=== PATIENT | female | born 1995 | race African-American/Black ===

== ENCOUNTER 2016-06-12 01:32 | Emergency (ER) | payer MEDICAID ==
[2016-06-12 01:47] VITALS: BP 134/75
[2016-06-12] MEDS ORDERED: AMOXICILLIN TRIHYDRATE 500 MG CAPSULE PO ONE (02:57)
--- NOTE | 2016-06-12 03:02 | ER Document Report ---
HPI - HPI Patient complains to provider of: sore throat Pain Level: 3 Context: Patient is a 21-year-old female that comes emergency department for chief complaint of a sore throat and congestion with intermittent cough for 1 week. She denies fever. She states she feels like she "cannot breathe". Patient does not smoke, denies any daily medications, denies any medical history other than asthma. Patient denies any sick contacts. - REPRODUCTIVE LMP: 2--17 Reproductive: DENIES: : - DERM Skin Color: Normal Past Medical History - General Information source: Patient - Social History Smoking Status: Never Smoker Chew tobacco use (# tins/day): No Frequency of alcohol use: None Drug Abuse: None Lives with: Family Family History: Reviewed & Not Pertinent Patient has suicidal ideation: No Patient has homicidal ideation: No Pulmonary Medical History: Reports: Hx Asthma Renal/ Medical History: Denies: Hx Peritoneal Dialysis Past Surgical History: Reports: Hx Section - Immunizations Immunizations up to date: Yes Hx Diphtheria, Pertussis, Tetanus Vaccination: Yes Vertical Provider Document - CONSTITUTIONAL General Appearance: WD/WN, No Apparent Distress - INFECTION CONTROL TRAVEL OUTSIDE OF THE [place] IN LAST 30 DAYS: No - HEENT HEENT: Atraumatic, Normocephalic. negative: Normal ENT Exam - Patient with right maxillary sinus tenderness which is notable him a mildly tender sinuses otherwise, congestion with slightly swollen turbinates, mild postnasal drip and or erythema noted in the pharynx, otherwise unremarkable exam, Pharyngeal Exudate, Pharyngeal Tenderness - NECK Neck: Normal Inspection. negative: Lymphadenopathy-Left, Lymphadenopathy-Right - RESPIRATORY Respiratory: Breath Sounds Normal, No Respiratory Distress O2 Sat by Pulse Oximetry: 73 - I do not agree with this, asked for a recheck - CARDIOVASCULAR Cardiovascular: Regular Rate, Regular Rhythm - GI/ABDOMEN Gastrointestinal: Abdomen Soft, Abdomen Non-Tender Course - Vital Signs Vital signs: Temp Pulse Resp BP Pulse Ox 97.6 F 73 18 134/75 H 73 L 06/12/16 01:46 06/12/16 01:46 06/12/16 01:46 06/12/16 01:46 06/12/16 01:46 Discharge - Discharge Clinical Impression: Pharyngitis Qualifiers: Pharyngitis/tonsillitis etiology: unspecified etiology Qualified Code(s): J02.9 - Acute pharyngitis, unspecified Sinusitis Qualifiers: Sinusitis location: maxillary Chronicity: acute Recurrence: non-recurrent Qualified Code(s): J01.00 - Acute maxillary sinusitis, unspecified Condition: Stable Disposition: HOME, SELF-CARE Additional Instructions: Exam and symptoms are consistent with a sinus infection with postnasal drainage and resulting sore throat and cough. Take the antibiotic as directed, use the Sudafed and Flonase as directed, consider [id number] antihistamines additionally, drink plenty of fluids and rest. Follow-up with primary care provider. Return to the emergency department for concerning symptoms. Prescriptions: Amoxicillin Trihydrate [Amoxil 875 mg Tablet] 1 tab PO BID #20 tablet Fluticasone Propionate [Flonase Nasal [place] 50 Mcg/[place] 16 gm] 2 sprays NASL Q12 #1 inhaler Pseudoephedrine HCl [Sudafed 12-Hour] 120 mg PO Q12 #20 tablet.sa
== END 2016-06-12 03:30 | disposition home or self-care (01) ==
LOC: ER 01:32
DX: J02.9 Acute pharyngitis, unspecified (principal); J01.00 Acute maxillary sinusitis, unspecified; J45.909 Unspecified asthma, uncomplicated
CPT/HCPCS: 99282

== ENCOUNTER 2016-06-25 13:02 | Emergency (ER) | payer MEDICAID ==
--- NOTE | 2016-06-25 13:10 | ER Document Report ---
ED Medical Screen (RME) - General Stated Complaint: VOMITTING Mode of Arrival: Ambulatory Information source: Patient Notes: Patient presents to the emergency department with sore throat and vomiting for 3 days. Sore throat since last week. Patient was evaluated in emergency department last week for sinus infection. Pt was placed on amoxicillin, has not been taking decongestant. Declines nausea medicine. I have greeted and performed a rapid initial assessment of this patient. A comprehensive ED assessment and evaluation of the patient, analysis of test results and completion of the medical decision making process will be conducted by additional ED providers. TRAVEL OUTSIDE OF THE [place] IN LAST 30 DAYS: No - Related Data Allergies/Adverse Reactions: latex [Latex] Allergy (Verified 06/25/16 13:10) turkey Allergy (Verified 06/25/16 13:10) Past Medical History Pulmonary Medical History: Reports: Hx Asthma Renal/ Medical History: Denies: Hx Peritoneal Dialysis Past Surgical History: Reports: Hx Section - Immunizations Immunizations up to date: Yes Hx Diphtheria, Pertussis, Tetanus Vaccination: Yes
--- NOTE | 2016-06-25 14:54 | ER Document Report ---
ED General - General Chief Complaint: Nausea/Vomiting Stated Complaint: VOMITTING Time seen by provider: 14:48 Mode of Arrival: Ambulatory Information source: Patient Notes: This is a 21-year-old female presents to the emergency room with sore throat, vomiting and an acid taste in the vomitus. Patient just finished amoxicillin because of a sinus infection. She has had persistent congestion. She has had intermittent fevers a few days ago but none presently. She denies any abdominal pain. TRAVEL OUTSIDE OF THE [place] IN LAST 30 DAYS: No - HPI Onset: Last week Onset/Duration: Gradual Quality of pain: No pain Severity: None Pain Level: Denies Associated symptoms: Nausea, Vomiting. denies: Chills, Fever Exacerbated by: Denies Relieved by: Denies Similar symptoms previously: Yes Recently seen / treated by doctor: Yes - Related Data Allergies/Adverse Reactions: latex [Latex] Allergy (Verified 06/25/16 13:10) turkey Allergy (Verified 06/25/16 13:10) Past Medical History - General Information source: Patient - Social History Smoking Status: Never Smoker Cigarette use (# per day): No Chew tobacco use (# tins/day): No Frequency of alcohol use: None Drug Abuse: None Lives with: Family Family History: Reviewed & Not Pertinent Patient has suicidal ideation: No Patient has homicidal ideation: No - Medical History Medical History: Negative Pulmonary Medical History: Reports: Hx Asthma Renal/ Medical History: Denies: Hx Peritoneal Dialysis Past Surgical History: Reports: Hx Section - Immunizations Immunizations up to date: Yes Hx Diphtheria, Pertussis, Tetanus Vaccination: Yes Review of Systems - Review of Systems Constitutional: See HPI EENT: See HPI Cardiovascular: No symptoms reported Respiratory: No symptoms reported Gastrointestinal: See HPI Genitourinary: No symptoms reported Female Genitourinary: No symptoms reported Musculoskeletal: No symptoms reported Skin: No symptoms reported Hematologic/Lymphatic: No symptoms reported Neurological/Psychological: No symptoms reported Physical Exam - Vital signs Vitals: Temp Pulse Resp BP Pulse Ox 98.6 F 97 14 145/74 H 98 06/25/16 13:10 06/25/16 13:10 06/25/16 13:10 06/25/16 13:10 06/25/16 13:10 Notes: Physical exam: GENERAL: 21-year-old female, alert and oriented 3, no acute distress. The patient looks good. HEAD: Atraumatic, normocephalic. EYES: Pupils equal round and reactive to light, extraocular movements intact, sclera anicteric, conjunctiva are normal. ENT: TMs normal, nares patent, oropharynx clear without exudates. Moist mucous membranes. NECK: Normal range of motion, supple without lymphadenopathy or JVD. LUNGS: Breath sounds clear to auscultation bilaterally and equal. No wheezes rales or rhonchi. HEART: Regular rate and rhythm without murmurs, rubs or gallops. ABDOMEN: Soft, normoactive bowel sounds. No tenderness to palpation. No guarding, no rebound. No masses appreciated. EXTREMITIES: Normal range of motion, no pitting or edema. No clubbing or cyanosis. NEUROLOGICAL: Cranial nerves II through XII grossly intact. Normal speech, normal gait. PSYCH: Normal mood, normal affect. SKIN: Warm, Dry, normal turgor, no rashes or lesions noted. Course - Re-evaluation Re-evalutation: 06/25/16 14:54 Note: The patient does have mild sinus congestion. Given the history, it sounds like she had a viral URI and that she was treated with amoxicillin for sinusitis. It may have upset her stomach and she's had some episodes of vomiting with an acid taste in her mouth. Her abdomen is soft and nontender. She's not had any vomiting in the ER and does not appear dehydrated. She also states that now she has a sore throat. Her throat looks good, there is no swelling, no erythema or exudates. The strep test is negative. I did discuss with her using simply saline to reduce the congestion and her nose and sinuses and she says she has tried it and it "did nothing". I will prescribe some [place] Magic mouthwash for the sore throat. And I will prescribe some Zofran for the nausea. I think in general, her GI symptoms are related to vomiting from the recent antibiotics. Her sinus congestion continues because she has a virus. Otherwise, she looks quite good. - Vital Signs Vital signs: Temp Pulse Resp BP Pulse Ox 97.9 F 109 H 16 138/87 H 100 06/25/16 15:20 06/25/16 15:20 06/25/16 15:20 06/25/16 15:20 06/25/16 15:20 Discharge - Discharge Clinical Impression: vomiting, sore throat Condition: Stable Disposition: HOME, SELF-CARE Instructions: Vomiting ([facility]) Additional Instructions: Recommendations: Take Zofran for nausea. Try the [place] Magic mouthwash for the sore throat. Drink plenty of fluids. Follow-up with a primary care doctor. Below is a list of 3 primary care doctors affiliated with the hospital: Dr. Joyce Naylor Kim [address], [place] [address] [phone] Dr Goldsmith Address: [address] [place] [address] [place] [address] Dr Douglas Address: [address] [place] [address] , [place] [address] Return to the emergency room for any concerns or to getting worse. Prescriptions: Nystatin/Dexameth/Diphen [Magic Mouthwash ([facility] Formula) Susp] 5 ml PO QID #120 ml Ondansetron HCl [Zofran 4 mg Tablet] 1 - 2 tab PO Q4H PRN #10 tablet PRN Reason:
[2016-06-25 15:21] VITALS: BP 138/87
== END 2016-06-25 15:16 | disposition home or self-care (01) ==
LOC: ER 13:02
DX: J02.9 Acute pharyngitis, unspecified (principal); R11.2 Nausea with vomiting, unspecified; Z91.040 Latex allergy status
CPT/HCPCS: 87070; 87880; 99284

== ENCOUNTER 2016-09-05 22:15 | Emergency (ER) | payer MEDICAID ==
[2016-09-05 23:59] LABS: ABSOLUTE BASOPHILS # (AUTO) 0.1 10^3/uL (0.0-0.2); ABSOLUTE EOSINOPHILS # (AUTO) 0.1 10^3/uL (0.0-0.6); ABSOLUTE LYMPHOCYTES (AUTO) 2.7 10^3/uL (0.5-4.7); ABSOLUTE MONOCYTES (AUTO) 0.6 10^3/uL (0.1-1.4); ABSOLUTE NEUT (AUTO) 5.2 10^3/uL (1.7-8.2); BASOPHILS % (AUTO) 0.6 % (0-2); EOSINOPHILS % (AUTO) 1.6 % (0-6); HEMATOCRIT 33.4 % (36.0-47.0); HEMOGLOBIN 11.1 g/dL (12.0-15.5); HGB HCT DIFFERENCE -0.1; MEAN CORPUSCULAR HEMOGLOBIN 27.4 pg (27.0-33.4); MEAN CORPUSCULAR HGB CONC 33.1 g/dL (32.0-36.0); MEAN CORPUSCULAR VOLUME 83 fl (80-97); RED BLOOD COUNT 4.04 10^6/uL (3.72-5.28); RED CELL DISTRIBUTION WIDTH 16.5 % (11.5-14.0); SEGMENTED NEUTROPHILS % (AUTO) 59.8 % (42-78); WHITE BLOOD COUNT 8.7 10^3/uL (4.0-10.5)
[2016-09-06 00:04] LABS: APPEARANCE,URINE CLEAR; BILIRUBIN,URINE NEGATIVE (NEGATIVE); GLUCOSE, URINE NEGATIVE (NEGATIVE); KETONES,URINE NEGATIVE (NEGATIVE); LEUKOCYTE ESTERASE,URINE NEGATIVE (NEGATIVE); NITRITE,URINE NEGATIVE (NEGATIVE); PROTEIN,URINE NEGATIVE (NEGATIVE); URINE SPECIFIC GRAVITY 1.018; UROBILINOGEN,URINE NEGATIVE mg/dL (<2.0)
[2016-09-06 00:15] LABS: ALANINE AMINOTRANSFERASE 32 U/L (9-52); ALBUMIN 3.7 g/dL (3.5-5.0); ALKALINE PHOSPHATASE 63 U/L (38-126); ANION GAP 11 (5-19); ASPARTATE AMINO TRANSFERASE 22 U/L (14-36); BILIRUBIN,DIRECT 0.2 mg/dL (0.0-0.4); BILIRUBIN,TOTAL 0.2 mg/dL (0.2-1.3); BLOOD UREA NITROGEN 14 mg/dL (7-20); CALCIUM 9.8 mg/dL (8.4-10.2); CARBON DIOXIDE 24 mmol/L (22-30); CHLORIDE 104 mmol/L (98-107); CREATININE RESULT 0.91 mg/dL (0.52-1.25); GLUCOSE 85 mg/dL (75-110); POTASSIUM 4.6 mmol/L (3.6-5.0); SODIUM 138.8 mmol/L (137-145); TOTAL PROTEIN 6.6 g/dL (6.3-8.2)
--- NOTE | 2016-09-06 02:23 | ER Document Report ---
ED General - General Chief Complaint: Skin Problem Stated Complaint: RIB PRESSURE,LOWER BACK PAIN Time Seen by Provider: 09/06/16 02:11 Notes: Patient is a 21-year-old female who comes emergency department for 2 complaints. First complaint is a rash that started on her abdomen, it is a circular rash in appearance with a blanched center, it is not very itchy, but it is starting to develop it is slightly painful but then afterwards it is asymptomatic. Symptoms started 3 weeks ago. Has one on her back, one on her leg on the left side, and the other patient also states that she is having pain is just under her ribs on both sides and also pains in hers on her abdomen and also pains in her mid to lower back on symptoms do respond to Aleve, symptoms present about 3 days,, more noticeable at night. Patient also had a recent positive test. Patient denies any daily medications. TRAVEL OUTSIDE OF THE [place] IN LAST 30 DAYS: No - Related Data Allergies/Adverse Reactions: latex [Latex] Allergy (Verified 09/05/16 23:02) turkey Allergy (Verified 09/05/16 23:02) Past Medical History - General Information source: Patient - Social History Smoking Status: Never Smoker Chew tobacco use (# tins/day): No Frequency of alcohol use: None Drug Abuse: None Lives with: Family Family History: Reviewed & Not Pertinent Patient has suicidal ideation: No Patient has homicidal ideation: No Pulmonary Medical History: Reports: Hx Asthma Renal/ Medical History: Denies: Hx Peritoneal Dialysis Past Surgical History: Reports: Hx Section - Immunizations Immunizations up to date: Yes Hx Diphtheria, Pertussis, Tetanus Vaccination: Yes Review of Systems - Review of Systems Constitutional: No symptoms reported EENT: No symptoms reported Cardiovascular: No symptoms reported Respiratory: No symptoms reported Gastrointestinal: See HPI Genitourinary: See HPI Female Genitourinary: No symptoms reported Musculoskeletal: See HPI Skin: See HPI Hematologic/Lymphatic: No symptoms reported Neurological/Psychological: No symptoms reported Physical Exam - Vital signs Vitals: Temp Pulse Resp BP Pulse Ox 98.6 F 90 16 145/80 H 99 09/05/16 23:02 09/05/16 23:02 09/05/16 23:02 09/05/16 23:02 09/05/16 23:02 Interpretation: Normal - General General appearance: Appears well, Alert In distress: None - Smiling, alert, well-appearing - HEENT Head: Normocephalic, Atraumatic Eyes: Normal Conjunctiva: Normal Extraocular movements intact: Yes Eyelashes: Normal Pupils: PERRL Mouth/Lips: Normal Mucous membranes: Normal Pharynx: Normal Neck: Normal - Respiratory Respiratory status: No respiratory distress Chest status: Nontender Breath sounds: Normal Chest palpation: Normal - Cardiovascular Rhythm: Regular. No: Tachycardia Heart sounds: Normal auscultation, S1 appreciated, S2 appreciated Murmur: No - Abdominal Inspection: Normal Distension: No distension Bowel sounds: Normal Tenderness: Nontender. No: Tender - Completely nontender abdomen Organomegaly: No organomegaly - Back Back: No: Tender - There is mild mid to lower thoracic and upper lumbar paraspinal tenderness, no evidence of trauma, no midline tenderness, no saddle anesthesia, moves all extremities and full range of motion with normal strength , normal distal neurovascular exam - Extremities General upper extremity: Normal inspection, Nontender, Normal color, Normal ROM , Normal temperature General lower extremity: Normal inspection, Nontender, Normal color, Normal ROM , Normal temperature, Normal weight bearing. No: Desire's sign - Neurological Neuro grossly intact: Yes Cognition: Normal Orientation: AAOx4 [place] Coma Scale Eye Opening: Spontaneous [place] Coma Scale Verbal: Oriented [place] Coma Scale Motor: Obeys Commands [place] Coma Scale Total: 15 Speech: Normal Motor strength normal: LUE, RUE, LLE, RLE Sensory: Normal - Psychological Associated symptoms: Normal affect, Normal mood - Skin Skin Temperature: Warm Skin Moisture: Dry Skin Color: Normal Location of irregularity: Other - 3 areas of rash noted to be circular with a raised border and clear central area, also noted on the right arm and left thigh , otherwise unremarkable exam Course - Re-evaluation Re-evalutation: Rash is actually fungal in appearance, no cellulitis or other abnormalities noted. We will treat accordingly. Abdomen is completely nontender, patient has generalized tenderness over the muscles of the back with no midline tenderness or neurological deficits. Laboratory workup reviewed and unremarkable, shows positive test which patient already was aware of. After discussion patient is requesting something to take other than Advil for her back, I did agree to give her some Flexeril to take only if needed, I did agree to give her Zantac because of symptoms of upper abdominal pain when lying down, patient states she will follow-up with primary care and return for any concerning or worsening symptoms. Discussed patient and rash with Dr. Hernandes. - Vital Signs Vital signs: Temp Pulse Resp BP Pulse Ox 98.6 F 87 16 144/86 H 98 09/05/16 23:02 09/06/16 03:30 09/06/16 03:30 09/06/16 03:30 09/06/16 03:30 - Laboratory Result Diagrams: 09/05/16 23:35 09/05/16 23:35 Laboratory results interpreted by me: 09/05/16 09/05/16 23:35 23:40 Hgb 11.1 L Hct 33.4 L RDW 16.5 H Urine HCG, Qual POSITIVE H Discharge - Discharge Clinical Impression: Rash Abdominal pain Qualifiers: Abdominal location: generalized Qualified Code(s): R10.84 - Generalized abdominal pain Back pain Qualifiers: Back pain location: back pain in unspecified location Chronicity: acute Back pain laterality: bilateral Qualified Code(s): M54.9 - Dorsalgia, unspecified Condition: Stable Disposition: HOME, SELF-CARE Additional Instructions: The rash has a fungal appearance, apply the cream as prescribed, follow-up with primary care for additional management. In regards to the abdominal pain, stop the Advil, take the Zantac if needed. In regards to the back pain, workup shows no abnormalities, this appears to be musculoskeletal, take the Flexeril as directed only if needed. Follow-up with [facility], return to emergency department for any concerning worsening symptoms including fever, vomiting, redness or spreading of the rash, or any other concerning symptoms. Prescriptions: Clotrimazole 30 gm TP ASDIR PRN #2 cream.gm. PRN Reason: Cyclobenzaprine HCl [Flexeril 5 mg Tablet] 1 - 2 tab PO TID PRN #15 tablet PRN Reason: Ranitidine HCl [Zantac 150 mg Tablet] 150 mg PO BID PRN #30 tablet PRN Reason: Forms: Elevated Blood Pressure
[2016-09-06 03:31] VITALS: BP 144/86
== END 2016-09-06 03:30 | disposition home or self-care (01) ==
LOC: ER 22:15
DX: R21 Rash and other nonspecific skin eruption (principal); R10.84 Generalized abdominal pain; R07.81 Pleurodynia; R10.9 Unspecified abdominal pain; M54.5 Low back pain; Z32.01 Encounter for pregnancy test, result positive; Z91.040 Latex allergy status
CPT/HCPCS: 36415; 80053; 81001; 81025; 83690; 85025; 99284

== ENCOUNTER 2016-10-24 06:19 | Emergency (ER) | payer MEDICAID ==
--- NOTE | 2016-10-24 07:01 | ER Document Report ---
ED GI/ - General Chief Complaint: Vaginal Pain Stated Complaint: VAGINAL AREA PAINFUL TO TOUCH Time Seen by Provider: 10/24/16 07:01 Mode of Arrival: Ambulatory Information source: Patient Notes: 21-year-old female complaining of introitus and vaginal itching and burning sensation. It is similar to when she had bacterial vaginosis in the past. She had an in August and no pelvic pain or discharge since then. Abstinent since August. No fever or chills. No dysuria frequency or urgency. TRAVEL OUTSIDE OF THE [place] IN LAST 30 DAYS: No - Related Data Allergies/Adverse Reactions: latex [Latex] Allergy (Verified 09/05/16 23:02) turkey Allergy (Verified 09/05/16 23:02) Past Medical History - General Information source: Patient - Social History Smoking Status: Never Smoker Frequency of alcohol use: None Drug Abuse: None Lives with: Family Family History: Reviewed & Not Pertinent Patient has suicidal ideation: No Patient has homicidal ideation: No Pulmonary Medical History: Reports: Hx Asthma Renal/ Medical History: Denies: Hx Peritoneal Dialysis Past Surgical History: Reports: Hx Section - Immunizations Immunizations up to date: Yes Hx Diphtheria, Pertussis, Tetanus Vaccination: Yes Review of Systems - Review of Systems Constitutional: No symptoms reported EENT: No symptoms reported Cardiovascular: No symptoms reported Respiratory: No symptoms reported Gastrointestinal: No symptoms reported Genitourinary: No symptoms reported Female Genitourinary: See HPI Musculoskeletal: No symptoms reported Skin: No symptoms reported Hematologic/Lymphatic: No symptoms reported Neurological/Psychological: No symptoms reported Physical Exam - Vital signs Vitals: Temp Pulse Resp BP Pulse Ox 98.2 F 74 16 144/90 H 99 10/24/16 06:26 10/24/16 06:26 10/24/16 06:26 10/24/16 06:26 10/24/16 06:26 Interpretation: Normal - General General appearance: Appears well, Alert In distress: None - HEENT Head: Normocephalic, Atraumatic Eyes: Normal Conjunctiva: Normal Pupils: PERRL Pharynx: Normal Neck: Supple. No: Lymphadenopathy - Respiratory Respiratory status: No respiratory distress Chest status: Nontender Breath sounds: Normal Chest palpation: Normal - Cardiovascular Rhythm: Regular Heart sounds: Normal auscultation Murmur: No - Abdominal Inspection: Normal Distension: No distension Bowel sounds: Normal Tenderness: Nontender. No: Tender Organomegaly: No organomegaly - Genitourinary External exam: Other - inflamed introitus, no lesions Speculum exam: Normal, Cervix closed. No: Vaginal discharge Vaginal bleeding: None Bimanuel exam: No: Cervical motion tender - Back Back: Normal, Nontender. No: CVA tenderness - Extremities General upper extremity: Normal inspection, Nontender, Normal color, Normal ROM , Normal temperature General lower extremity: Normal inspection, Nontender, Normal color, Normal ROM , Normal temperature, Normal weight bearing. No: Desire's sign - Neurological Neuro grossly intact: Yes Cognition: Normal Orientation: AAOx4 [place] Coma Scale Eye Opening: Spontaneous [place] Coma Scale Verbal: Oriented [place] Coma Scale Motor: Obeys Commands [place] Coma Scale Total: 15 Speech: Normal Motor strength normal: LUE, RUE, LLE, RLE Sensory: Normal - Psychological Associated symptoms: Normal affect, Normal mood - Skin Skin Temperature: Warm Skin Moisture: Dry Skin Color: Normal Course - Re-evaluation Re-evalutation: 10/24/16 19:52 late entry: std cx negative, the wet prep showed bacteria, since hx of BV and sx similar tx with flagyl. - Vital Signs Vital signs: Temp Pulse Resp BP Pulse Ox 98.5 F 68 16 115/80 99 10/24/16 10:11 10/24/16 10:11 10/24/16 10:11 10/24/16 10:11 10/24/16 10:11 - Laboratory Laboratory results interpreted by me: 10/24/16 07:00 Urine Blood MODERATE H Discharge - Discharge Clinical Impression: Bacterial vaginosis Vaginitis Qualifiers: Chronicity: acute Qualified Code(s): N76.0 - Acute vaginitis Condition: Good Disposition: HOME, SELF-CARE Instructions: Vaginitis ([facility]), Vaginosis, Bacterial ([facility]), Metronidazole ([facility]) Additional Instructions: no alcohol with the flagyl no douching call me in 3 hours for the STD culture result [phone] see obgyn if symtpoms persist Please complete the patient satisfaction survey if you get one, and return it.. If you do not receive a survey, then you can go to the [facility] website, [email or web address] and place your comments about your very good care. Thank you very much. It was a pleasure being your medical provider today. Prescriptions: Metronidazole 500 mg PO BID #14 tablet
[2016-10-24 07:38] LABS: APPEARANCE,URINE CLEAR; BILIRUBIN,URINE NEGATIVE (NEGATIVE); GLUCOSE, URINE NEGATIVE (NEGATIVE); KETONES,URINE NEGATIVE (NEGATIVE); LEUKOCYTE ESTERASE,URINE NEGATIVE (NEGATIVE); NITRITE,URINE NEGATIVE (NEGATIVE); PROTEIN,URINE NEGATIVE (NEGATIVE); URINE SPECIFIC GRAVITY 1.024; UROBILINOGEN,URINE NEGATIVE mg/dL (<2.0)
[2016-10-24 10:13] VITALS: BP 115/80
[2016-10-24 10:26] LABS: CHLAM PCR NOT DETECTED (NOT DETECT)
== END 2016-10-24 10:11 | disposition home or self-care (01) ==
LOC: ER 06:19
DX: N76.0 Acute vaginitis (principal); R10.2 Pelvic and perineal pain
CPT/HCPCS: 81001; 81025; 87210; 87491; 87591; 99283

== ENCOUNTER 2017-03-01 11:45 | Emergency (ER) | payer MEDICAID ==
--- NOTE | 2017-03-01 12:39 | ER Document Report ---
ED Skin Rash/Insect Bite/Abscs - General Chief Complaint: Rash Stated Complaint: POSSIBLE RASH Time Seen by Provider: 03/01/17 12:30 TRAVEL OUTSIDE OF THE [place] IN LAST 30 DAYS: No - HPI Patient complains to provider of: Skin rash/lesion Quality of pain: Other - itching Skin Character: Rash Skin Temperature: Warm Quality of rash: Itchy Exacerbated by: Denies Relieved by: Denies Similar symptoms previously: Yes Recently seen / treated by doctor: No - Related Data Allergies/Adverse Reactions: latex [Latex] Allergy (Verified 03/01/17 11:49) turkey Allergy (Verified 03/01/17 11:49) Past Medical History - General Information source: Patient - Social History Smoking Status: Never Smoker Chew tobacco use (# tins/day): No Frequency of alcohol use: None Drug Abuse: None Lives with: Family Family History: Reviewed & Not Pertinent Patient has suicidal ideation: No Patient has homicidal ideation: No Pulmonary Medical History: Reports: Hx Asthma Renal/ Medical History: Denies: Hx Peritoneal Dialysis Past Surgical History: Reports: Hx Section, Hx Gynecologic Surgery - - Immunizations Immunizations up to date: Yes Hx Diphtheria, Pertussis, Tetanus Vaccination: Yes Review of Systems - Review of Systems Constitutional: No symptoms reported EENT: No symptoms reported Cardiovascular: No symptoms reported Respiratory: No symptoms reported Gastrointestinal: No symptoms reported Genitourinary: No symptoms reported Female Genitourinary: No symptoms reported Musculoskeletal: No symptoms reported Skin: See HPI Hematologic/Lymphatic: No symptoms reported Neurological/Psychological: No symptoms reported Physical Exam - Vital signs Vitals: Temp Pulse Resp BP Pulse Ox 98.2 F 93 14 137/107 H 99 03/01/17 11:49 03/01/17 11:49 03/01/17 11:49 03/01/17 11:49 03/01/17 11:49 Interpretation: Normal - General General appearance: Appears well, Alert - HEENT Head: Normocephalic, Atraumatic Eyes: Normal Pupils: PERRL - Respiratory Respiratory status: No respiratory distress Chest status: Nontender Breath sounds: Normal Chest palpation: Normal - Cardiovascular Rhythm: Regular Heart sounds: Normal auscultation Murmur: No - Abdominal Inspection: Normal Distension: No distension Bowel sounds: Normal Tenderness: Nontender Organomegaly: No organomegaly - Back Back: Normal, Nontender - Extremities General upper extremity: Normal inspection, Nontender, Normal color, Normal ROM , Normal temperature General lower extremity: Normal inspection, Nontender, Normal color, Normal ROM , Normal temperature, Normal weight bearing. No: Desire's sign - Neurological Neuro grossly intact: Yes Cognition: Normal Orientation: AAOx4 Brenda Coma Scale Eye Opening: Spontaneous [place] Coma Scale Verbal: Oriented Brenda Coma Scale Motor: Obeys Commands [place] Coma Scale Total: 15 Speech: Normal Motor strength normal: LUE, RUE, LLE, RLE Sensory: Normal - Psychological Associated symptoms: Normal affect, Normal mood - Skin Skin Temperature: Warm Skin Moisture: Dry Skin Color: Normal Skin irregularity: Rash - scattered sicrete annular lesions with raised border and central clearing Course - Re-evaluation Re-evalutation: 03/01/17 12:34 pt is a healthy 22 yo female. VSS. afebrile. presenting with pruritis rash scattered on body for several weeks. pt reports she was treated for ring worm previously but rash continues. son also had ring worm. no petechia/purpura. no sloughing. no extensive erythroderma. lesions are c/w tinea coporus. will treat with topical antfungal. pt instructed to f/u pcm for further evaluation and treatment is rash persists. pt agreeable with plan and stable for discharge - Vital Signs Vital signs: Temp Pulse Resp BP Pulse Ox 98.2 F 93 14 137/107 H 99 03/01/17 11:49 03/01/17 11:49 03/01/17 11:49 03/01/17 11:49 03/01/17 11:49 Discharge - Discharge Clinical Impression: Tinea corporis Condition: Stable Disposition: HOME, SELF-CARE Instructions: Ringworm (Tinea Corporis) ([facility]), Topical Steroid Cream or Ointment ([facility]), Use of Diphenhydramine Prescriptions: Clotrimazole/Betamethasone Dip [Lotrisone Cream] 1 applic TP DAILY #45 g
[2017-03-01 12:57] VITALS: BP 131/79
== END 2017-03-01 12:59 | disposition home or self-care (01) ==
LOC: ER 11:45
DX: B35.4 Tinea corporis (principal)
CPT/HCPCS: 99282

== ENCOUNTER 2017-03-18 22:17 | Emergency (ER) | payer MEDICAID | END 2017-03-18 23:00 | disposition left against medical advice (07) | LOC: ER 22:17 | DX: Z53.21 Procedure and treatment not carried out due to patient leaving prior to being seen by health care provider (principal) ==

== ENCOUNTER 2017-11-12 01:06 | Emergency (ER) | payer MEDICAID ==
--- NOTE | 2017-11-12 04:06 | ER Document Report ---
ED General - General Chief Complaint: Congestion Stated Complaint: SORE THROAT, EAR PAIN Time Seen by Provider: 11/12/17 02:54 Mode of Arrival: Ambulatory Information source: Patient Notes: Patient with complaint of bilateral ear pressure, sinus pain, nasal congestion, non-productive cough and low grade fevers x5 days. TRAVEL OUTSIDE OF THE [place] IN LAST 30 DAYS: No - Related Data Allergies/Adverse Reactions: latex [Latex] Allergy (Verified 03/01/17 11:49) turkey Allergy (Verified 03/01/17 11:49) Past Medical History - General Information source: Patient - Social History Smoking Status: Never Smoker Frequency of alcohol use: None Drug Abuse: None Family History: Reviewed & Not Pertinent Patient has suicidal ideation: No Patient has homicidal ideation: No Pulmonary Medical History: Reports: Hx Asthma Renal/ Medical History: Denies: Hx Peritoneal Dialysis Past Surgical History: Reports: Hx Section, Hx Gynecologic Surgery - - Immunizations Immunizations up to date: Yes Hx Diphtheria, Pertussis, Tetanus Vaccination: Yes Review of Systems - Review of Systems Constitutional: See HPI EENT: See HPI Cardiovascular: No symptoms reported Respiratory: See HPI Gastrointestinal: No symptoms reported Genitourinary: No symptoms reported Female Genitourinary: No symptoms reported Musculoskeletal: No symptoms reported Skin: No symptoms reported Hematologic/Lymphatic: No symptoms reported Neurological/Psychological: No symptoms reported Physical Exam - Vital signs Vitals: Temp Pulse Resp BP Pulse Ox 98.3 F 75 18 133/92 H 94 11/12/17 01:15 11/12/17 01:15 11/12/17 01:15 11/12/17 01:15 11/12/17 01:15 - Notes Notes: PHYSICAL EXAMINATION: GENERAL: Well-appearing, well-nourished and in no acute distress. HEAD: Atraumatic, normocephalic. EYES: Pupils equal round and reactive to light, extraocular movements intact, sclera anicteric, conjunctiva are normal. ENT: Nares patent, oropharynx clear without exudates. Moist mucous membranes. Right TM bulging, Left TM obscured by cerumen and small insect. TTP over maxillary sinuses. NECK: Normal range of motion, supple without lymphadenopathy LUNGS: Breath sounds clear to auscultation bilaterally and equal. No wheezes rales or rhonchi. HEART: Regular rate and rhythm without murmurs ABDOMEN: Soft, nontender, normoactive bowel sounds. No guarding, no rebound. No masses appreciated. EXTREMITIES: Normal range of motion, no pitting or edema. No cyanosis. NEUROLOGICAL: No focal neurological deficits. Moves all extremities spontaneously and on command. PSYCH: Normal mood, normal affect. SKIN: Warm, Dry, normal turgor, no rashes or lesions noted. Course - Re-evaluation Re-evalutation: Left ear irrigated. Rapid strep negative, exam consistent with sinusitis. Will start on augmentin as patient has been ill at least 5 days with low grade fever at home. - Vital Signs Vital signs: Temp Pulse Resp BP Pulse Ox 97.6 F 68 18 127/96 H 100 11/12/17 04:46 11/12/17 04:46 11/12/17 04:46 11/12/17 04:46 11/12/17 04:46 Discharge - Discharge Clinical Impression: Sinusitis Qualifiers: Sinusitis location: maxillary Chronicity: acute Recurrence: non-recurrent Qualified Code(s): J01.00 - Acute maxillary sinusitis, unspecified Ear foreign body Qualifiers: Encounter type: initial encounter Laterality: left Qualified Code(s): T16.2XXA - Foreign body in left ear, initial encounter Condition: Stable Disposition: HOME, SELF-CARE Additional Instructions: Sinusitis You have sinusitis, an infection of the sinus cavities of the face. The sinuses are air-filled chambers which open into the inside of the nose. Bacteria and pus fill a sinus, causing pain, drainage, and fever. Sinusitis is treated with antibiotics. Often, expectorants (to thin the sinus mucous) or decongestants (to reduce swelling) are prescribed as well. Healing requires seven to 10 days. Avoid chemical fumes, pollens, dusts, and smoke (especially cigarette smoke ). Keep the air humidified in your bedroom and work area and take plenty of liquids by mouth. This condition can be serious if the infection spreads. If your symptoms worsen, or if you develop severe headache, high fever, stiff neck, or a rash, you must call the doctor or return for re-evaluation. Prescriptions: Amoxicillin/Potassium Clav [Augmentin 875-125 Tablet] 1 each PO BID #14 tablet Guaifenesin/Pseudoephedrne HCl [Mucinex D ER Tablet] 1 each PO Q12H #20 tab.er.12h Referrals: JACEY MARTE DO [ASSOCIATE] - Follow up as needed
[2017-11-12] MEDS ORDERED: AMOXICILLIN TRIHYDRATE 500 MG CAPSULE PO ONE (04:09)
[2017-11-12] MEDS ORDERED: AMOXICILLIN TR/POT CLAVULANATE 500-125 MG TAB PO ONE (04:09)
[2017-11-12 04:47] VITALS: BP 127/96
== END 2017-11-12 04:47 | disposition home or self-care (01) ==
LOC: ER 01:06
DX: J01.00 Acute maxillary sinusitis, unspecified (principal); T16.2XXA Foreign body in left ear, initial encounter; X58.XXXA Exposure to other specified factors, initial encounter; H61.22 Impacted cerumen, left ear; R09.81 Nasal congestion; R05 Cough; R50.9 Fever, unspecified; J34.89 Other specified disorders of nose and nasal sinuses; J45.909 Unspecified asthma, uncomplicated; Z91.040 Latex allergy status; Z91.018 Allergy to other foods
CPT/HCPCS: 99283; 87070; 87880; J3490

== ENCOUNTER 2017-11-25 21:51 | Emergency (ER) | payer MEDICAID ==
[2017-11-26 01:17] LABS: APPEARANCE,URINE CLEAR; BILIRUBIN,URINE NEGATIVE (NEGATIVE); COLOR,URINE YELLOW; GLUCOSE, URINE NEGATIVE (NEGATIVE); KETONES,URINE NEGATIVE (NEGATIVE); LEUKOCYTE ESTERASE,URINE NEGATIVE (NEGATIVE); NITRITE,URINE NEGATIVE (NEGATIVE); PROTEIN,URINE NEGATIVE (NEGATIVE); UROBILINOGEN,URINE NEGATIVE mg/dL (<2.0)
[2017-11-26 01:30] LABS: BACTERIA (WET MOUNT) 3+ BACTERIA SEEN; RBCS (WET MOUNT) NO RBCS SEEN; T.VAGINALIS (WET MOUNT) NO TRICHOMONAS SEEN; WBCS (WET MOUNT) 2+ WBCS SEEN; YEAST (WET MOUNT) NO YEAST SEEN
[2017-11-26] MEDS ORDERED: METRONIDAZOLE 500 MG TABLET PO ONE (01:32)
[2017-11-26 01:47] VITALS: BP 124/71
--- NOTE | 2017-11-26 01:50 | ER Document Report ---
ED General - General Chief Complaint: Vaginal Itching Stated Complaint: VAGINAL DISCOMFORT Time Seen by Provider: 11/25/17 23:43 Mode of Arrival: Ambulatory Information source: Patient TRAVEL OUTSIDE OF THE [place] IN LAST 30 DAYS: No - HPI Notes: 22-year-old female presents with report that she recently had cough and pharyngitis and was on an antibiotic which she finished 2 days ago, but she reports 3 days ago she developed vaginal discharge and irritation. She denies any history of diabetes. She reports no fever or chills or abdominal pain or dysuria or vaginal bleeding or constipation or diarrhea. She states her cough and pharyngitis have resolved. No chest pain or difficulty breathing. No other skin rash. - Related Data Allergies/Adverse Reactions: latex [Latex] Allergy (Verified 03/01/17 11:49) turkey Allergy (Verified 03/01/17 11:49) Past Medical History - General Information source: Patient - Social History Smoking Status: Never Smoker Chew tobacco use (# tins/day): No Frequency of alcohol use: None Drug Abuse: None Lives with: Family Family History: Reviewed & Not Pertinent Patient has suicidal ideation: No Patient has homicidal ideation: No Pulmonary Medical History: Reports: Hx Asthma Renal/ Medical History: Denies: Hx Peritoneal Dialysis Past Surgical History: Reports: Hx Section, Hx Gynecologic Surgery - - Immunizations Immunizations up to date: Yes Hx Diphtheria, Pertussis, Tetanus Vaccination: Yes Review of Systems - Review of Systems -: Yes All other systems reviewed and negative Physical Exam - Vital signs Vitals: Temp Pulse Resp BP Pulse Ox 99.3 F 73 18 139/95 H 98 11/25/17 21:56 11/25/17 21:56 11/25/17 21:56 11/25/17 21:56 11/25/17 21:56 - Notes Notes: PHYSICAL EXAMINATION: GENERAL: Well-appearing, well-nourished and in no acute distress. HEAD: Atraumatic, normocephalic. EYES: Pupils equal round and reactive to light, extraocular movements intact, conjunctiva are normal. ENT: Nares patent, oropharynx clear without exudates. Moist mucous membranes. NECK: Normal range of motion, supple without lymphadenopathy LUNGS: Breath sounds clear to auscultation bilaterally and equal. No wheezes rales or rhonchi. HEART: Regular rate and rhythm without murmurs ABDOMEN: Soft, nontender, nondistended abdomen. No guarding, no rebound. No masses appreciated. Female : Normal external female genitalia. Mild whitish discharge with minimal odor noted. Cervix is benign without lesions there is no cervical motion tenderness. There is no adnexal mass or tenderness noted. No herpetic lesions noted. Musculoskeletal: Normal range of motion, no pitting or edema. No cyanosis. NEUROLOGICAL: Cranial nerves grossly intact. Normal speech, normal gait. Normal sensory, motor exams PSYCH: Normal mood, normal affect. SKIN: Warm, Dry, normal turgor, no rashes or lesions noted. Course - Re-evaluation Re-evalutation: 11/26/17 02:16 Wet prep was positive for bacterial vaginosis but showed no evidence for yeast infection. The test and urinalysis were negative. Specimen was sent for gonorrhea and chlamydia. Patient was given Flagyl. - Vital Signs Vital signs: Temp Pulse Resp BP Pulse Ox 98.5 F 62 16 124/71 99 11/26/17 01:42 11/26/17 01:42 11/26/17 01:42 11/26/17 01:42 11/26/17 01:42 Discharge - Discharge Clinical Impression: BV (bacterial vaginosis) Condition: Stable Disposition: HOME, SELF-CARE Instructions: Vaginosis, Bacterial ([facility]) Additional Instructions: If vaginal discharge persists after finishing the metronidazole (flagyl), then take the Diflucan for possible yeast infection. Prescriptions: Fluconazole [Diflucan] 150 mg PO ONCE PRN #1 tablet PRN Reason: Metronidazole [Flagyl 500 mg Tablet] 500 mg PO BID #14 tablet Referrals: [facility] [Provider Group] - Follow up as needed
[2017-11-26 02:57] LABS: CHLAM PCR NOT DETECTED (NOT DETECT); GON PCR NOT DETECTED (NOT DETECT)
== END 2017-11-26 01:54 | disposition home or self-care (01) ==
LOC: ER 21:51
DX: N76.0 Acute vaginitis (principal); B96.89 Other specified bacterial agents as the cause of diseases classified elsewhere; Z91.018 Allergy to other foods; Z91.040 Latex allergy status; J45.909 Unspecified asthma, uncomplicated
CPT/HCPCS: 99283; 87210; 81025; 81001; 87491; 87591; J3490

== ENCOUNTER 2018-03-26 16:51 | Emergency (ER) | payer MEDICAID ==
--- NOTE | 2018-03-26 18:13 | ER Document Report ---
ED Headache - General Chief Complaint: Dizziness Stated Complaint: HEADACHE Time Seen by Provider: 03/26/18 18:10 Mode of Arrival: Ambulatory Information source: Patient Notes: Patient is a 23-year-old at approximately 8-9 weeks and no other pertinent past medical history who presents with ongoing headache and intermittent nosebleeds for the past week. Patient reports headache is left- sided behind the left eye, is a throbbing and pressure sensation, denies visual disturbance to the left eye. Patient denies preceding fevers or chills, no head injuries, also reports feeling slightly lightheaded but denies episodes of syncope. She reports never having a nosebleed before. Of note, patient does have extensive family history of multiple conditions including hypertension. Patient denies issues with her preceding . She denies vaginal bleeding or discharge. TRAVEL OUTSIDE OF THE [place] IN LAST 30 DAYS: No - HPI Patient complains to provider of: Headache Patient reports: Other - Frequent nosebleeds Onset: Last week Onset was: Abrupt Timing: Still present Quality of pain: Pressure, Throbbing Severity: Moderate Pain Level: 2 Preceding symptoms: denies: Typical of prior aura(s), Visual disturbance Associated symptoms: Lightheaded, Nausea/vomiting. denies: Photophobia, Stiff neck, Tingling/numb sensation, Trouble walking Exacerbated by: Light Similar symptoms previously: No Recently seen / treated by doctor: No - Related Data Allergies/Adverse Reactions: latex [Latex] Allergy (Verified 03/26/18 16:53) turkey Allergy (Verified 03/26/18 16:53) Past Medical History - General Information source: Patient - Social History Smoking Status: Never Smoker Chew tobacco use (# tins/day): No Frequency of alcohol use: None Drug Abuse: None Lives with: Family Family History: Reviewed & Not Pertinent, Hypertension Patient has suicidal ideation: No Patient has homicidal ideation: No - Past Medical History Cardiac Medical History: Reports: None Pulmonary Medical History: Reports: Hx Asthma EENT Medical History: Reports: None Neurological Medical History: Reports: None Endocrine Medical History: Reports: None Renal/ Medical History: Reports: None. Denies: Hx Peritoneal Dialysis Malignancy Medical History: Reports: None GI Medical History: Reports: None Musculoskeletal Medical History: Reports None Skin Medical History: Reports None Psychiatric Medical History: Reports: None Traumatic Medical History: Reports: None Infectious Medical History: Reports: None Surgical Hx: Negative Past Surgical History: Reports: Hx Section, Hx Gynecologic Surgery - - Immunizations Immunizations up to date: Yes Hx Diphtheria, Pertussis, Tetanus Vaccination: Yes Review of Systems - Review of Systems -: Yes ROS unobtainable due to patient's medical condition Constitutional: No symptoms reported EENT: Other - Nosebleeds Cardiovascular: No symptoms reported Respiratory: No symptoms reported Gastrointestinal: No symptoms reported Genitourinary: No symptoms reported Female Genitourinary: No symptoms reported Musculoskeletal: No symptoms reported Skin: No symptoms reported Hematologic/Lymphatic: No symptoms reported Neurological/Psychological: See HPI, Headaches -: Yes All other systems reviewed and negative Physical Exam - Vital signs Vitals: Temp Pulse BP Pulse Ox 97.7 F 86 140/78 H 99 03/26/18 17:08 03/26/18 17:08 03/26/18 17:08 03/26/18 17:08 Interpretation: Normal - General General appearance: Appears well, Alert In distress: None - HEENT Head: Normocephalic, Atraumatic Eyes: Normal Pupils: PERRL - Respiratory Respiratory status: No respiratory distress Chest status: Nontender Breath sounds: Normal Chest palpation: Normal - Cardiovascular Rhythm: Regular Heart sounds: Normal auscultation Murmur: No - Abdominal Inspection: Normal Distension: No distension Bowel sounds: Normal Tenderness: Nontender Organomegaly: No organomegaly - Rectal Tenderness: No - Deferred - Genitourinary Notes: Deferred - Back Back: Normal, Nontender - Extremities General upper extremity: Normal inspection, Nontender, Normal color, Normal ROM , Normal temperature General lower extremity: Normal inspection, Nontender, Normal color, Normal ROM , Normal temperature, Normal weight bearing. No: Desire's sign - Neurological Neuro grossly intact: Yes Cognition: Normal Orientation: AAOx4 [place] Coma Scale Eye Opening: Spontaneous Brenda Coma Scale Verbal: Oriented [place] Coma Scale Motor: Obeys Commands [place] Coma Scale Total: 15 Speech: Normal Cranial nerves: Normal Cerebellar coordination: Normal Motor strength normal: LUE, RUE, LLE, RLE Sensory: Normal - Psychological Associated symptoms: Normal affect, Normal mood - Skin Skin Temperature: Warm Skin Moisture: Dry Skin Color: Normal Course - Re-evaluation Re-evalutation: 03/26/18 19:37 Possible etiology includes hypertension, unknown bleeding diathesis secondary to , anemia. Headache clearly is migraine but could also be blood pressure related. Will obtain labs, quantitative hCG, and reassess. 03/26/18 22:18 Lab work, including quantitative hCG as well as blood counts, are normal. Patient has had mild improvement with Tylenol, Benadryl, and IV Reglan. 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 She will be discharged home with return precautions and follow-up, she agrees with and understands the plan. - Vital Signs Vital signs: Temp Pulse Resp BP Pulse Ox 97.7 F 86 23 H 134/73 H 98 03/26/18 17:08 03/26/18 17:08 03/26/18 20:01 03/26/18 20:00 03/26/18 20:01 - Laboratory Result Diagrams: 03/26/18 19:35 03/26/18 19:35 Laboratory results interpreted by me: 03/26/18 03/26/18 03/26/18 19:04 19:35 19:35 Hgb 11.0 L Hct 33.1 L RDW 17.0 H Chloride 108 H AST 42 H Beta HCG, Quant 225405.00 H Ur Leukocyte Esterase TRACE H - Diagnostic Test Radiology reviewed: Reports reviewed - EKG Interpretation by Me EKG shows normal: Sinus rhythm Rate: Normal Rhythm: NSR [place]/QRS: No: LBBB P Waves: No: KINGSLEY, LAE, Absent, AV Dissociation, Other Heart block present: No: 1st Degree, Mobitz 1, Mobitz 2, CHB (3rd degree block) Discharge - Discharge Clinical Impression: Headache, Epistaxis Condition: Good Disposition: HOME, SELF-CARE Instructions: Migraine Headache ([facility]), Nosebleed Instructions ([facility]) Additional Instructions: Please follow-up with your supervisor modern languages as scheduled. It is safe to take Tylenol 3 times daily as needed for headache. Return to the emergency department immediately if you experience uncontrollable nosebleeds, vision changes, difficulty breathing, or any other concerning symptom. Print Language: [place]
[2018-03-26] MEDS ORDERED: METOCLOPRAMIDE HCL INJ/PF 10 MG/2 ML SDV IV ONE (18:51)
[2018-03-26] MEDS ORDERED: ACETAMINOPHEN 325 MG TABLET PO ONE (18:51)
[2018-03-26 19:24] LABS: APPEARANCE,URINE CLEAR; BILIRUBIN,URINE NEGATIVE (NEGATIVE); COLOR,URINE YELLOW; GLUCOSE, URINE NEGATIVE (NEGATIVE); KETONES,URINE NEGATIVE (NEGATIVE); LEUKOCYTE ESTERASE,URINE TRACE (NEGATIVE); NITRITE,URINE NEGATIVE (NEGATIVE); PROTEIN,URINE NEGATIVE (NEGATIVE); URINE SPECIFIC GRAVITY 1.021; UROBILINOGEN,URINE NEGATIVE mg/dL (<2.0)
[2018-03-26] MEDS: DIPHENHYDRAMINE HCL 50 MG/ML VIAL IV ONE ×2 (19:26→19:38)
[2018-03-26 19:35] LABS: URINE AMPHETAMINES SCREEN NEGATIVE; URINE BARBITURATES SCREEN NEGATIVE; URINE BENZODIAZEPINES SCREEN NEGATIVE; URINE COCAINE SCREEN NEGATIVE; URINE MARIJUANA (THC) SCREEN NEGATIVE; URINE METHADONE SCREEN NEGATIVE; URINE PHENCYCLIDINE SCREEN NEGATIVE
[2018-03-26 19:57] LABS: ABSOLUTE BASOPHILS # (AUTO) 0.1 10^3/uL (0.0-0.2); ABSOLUTE EOSINOPHILS # (AUTO) 0.1 10^3/uL (0.0-0.6); ABSOLUTE LYMPHOCYTES (AUTO) 2.1 10^3/uL (0.5-4.7); ABSOLUTE MONOCYTES (AUTO) 0.5 10^3/uL (0.1-1.4); ABSOLUTE NEUT (AUTO) 5.6 10^3/uL (1.7-8.2); BASOPHILS % (AUTO) 0.9 % (0-2); HEMATOCRIT 33.1 % (36.0-47.0); LYMPHOCYTES % (AUTO) 25.5 % (13-45); MEAN CORPUSCULAR HEMOGLOBIN 27.5 pg (27.0-33.4); MEAN CORPUSCULAR HGB CONC 33.4 g/dL (32.0-36.0); MEAN CORPUSCULAR VOLUME 82 fl (80-97); MONOCYTES % (AUTO) 5.5 % (3-13); PLATELET COUNT 436 10^3/uL (150-450); RED BLOOD COUNT 4.02 10^6/uL (3.72-5.28); SEGMENTED NEUTROPHILS % (AUTO) 67.1 % (42-78); TOTAL CELLS COUNTED % (AUTO) 100 %; WHITE BLOOD COUNT 8.3 10^3/uL (4.0-10.5)
[2018-03-26 20:19] LABS: ALANINE AMINOTRANSFERASE 11 U/L (9-52); ALKALINE PHOSPHATASE 58 U/L (38-126); ANION GAP 8 (5-19); ASPARTATE AMINO TRANSFERASE 42 U/L (14-36); BILIRUBIN,DIRECT 0.4 mg/dL (0.0-0.4); BILIRUBIN,TOTAL 0.4 mg/dL (0.2-1.3); BLOOD UREA NITROGEN 14 mg/dL (7-20); CALCIUM 9.2 mg/dL (8.4-10.2); CARBON DIOXIDE 25 mmol/L (22-30); CHLORIDE 108 mmol/L (98-107); GLUCOSE 91 mg/dL (75-110); LIPASE 103.5 U/L (23-300); POTASSIUM 4.2 mmol/L (3.6-5.0); TOTAL PROTEIN 7.8 g/dL (6.3-8.2)
[2018-03-26 20:25] VITALS: BP 134/73
--- NOTE | 2018-03-27 13:12 | EKG REPORT ---
SEVERITY:- NORMAL ECG - SINUS RHYTHM : Confirmed by: Samira Richmond MD 27-Mar-2018 13:10:58
== END 2018-03-26 22:30 | disposition home or self-care (01) ==
LOC: ER 16:51
DX: O26.91 Pregnancy related conditions, unspecified, first trimester (principal); R04.0 Epistaxis; R51 Headache; R42 Dizziness and giddiness; Z3A.09 9 weeks gestation of pregnancy; Z91.040 Latex allergy status
CPT/HCPCS: 93005; 99284; 96374; 36415; 84702; 83690; 85025; 80053; 81001; 80307; 93010; J3490; J2765; J1200

== ENCOUNTER 2018-10-14 04:06 | Outpatient (CLI) | payer MEDICAID ==
[2018-10-14 05:03] LABS: APPEARANCE,URINE CLOUDY; BILIRUBIN,URINE NEGATIVE (NEGATIVE); GLUCOSE, URINE NEGATIVE (NEGATIVE); KETONES,URINE TRACE mg/dL (NEGATIVE); LEUKOCYTE ESTERASE,URINE SMALL (NEGATIVE); NITRITE,URINE NEGATIVE (NEGATIVE); PROTEIN,URINE 100 mg/dL (NEGATIVE); URINE SPECIFIC GRAVITY 1.027
[2018-10-14 05:07] LABS: COLOR,URINE DARK YELLOW
[2018-10-14 05:18] LABS: URINE AMPHETAMINES SCREEN NEGATIVE; URINE BARBITURATES SCREEN NEGATIVE; URINE BENZODIAZEPINES SCREEN NEGATIVE; URINE COCAINE SCREEN NEGATIVE; URINE MARIJUANA (THC) SCREEN NEGATIVE; URINE METHADONE SCREEN NEGATIVE; URINE PHENCYCLIDINE SCREEN NEGATIVE
[2018-10-14 05:52] LABS: ABSOLUTE EOSINOPHILS # (AUTO) 0.1 10^3/uL (0.0-0.6); ABSOLUTE LYMPHOCYTES (AUTO) 0.9 10^3/uL (0.5-4.7); ABSOLUTE MONOCYTES (AUTO) 0.8 10^3/uL (0.1-1.4); BASOPHILS % (AUTO) 0.3 % (0-2); EOSINOPHILS % (AUTO) 0.6 % (0-6); HEMATOCRIT 29.5 % (36.0-47.0); HEMOGLOBIN 9.7 g/dL (12.0-15.5); LYMPHOCYTES % (AUTO) 10.1 % (13-45); MEAN CORPUSCULAR HEMOGLOBIN 26.9 pg (27.0-33.4); MEAN CORPUSCULAR HGB CONC 32.8 g/dL (32.0-36.0); MEAN CORPUSCULAR VOLUME 82 fl (80-97); MONOCYTES % (AUTO) 8.9 % (3-13); PLATELET COUNT 316 10^3/uL (150-450); RED CELL DISTRIBUTION WIDTH 16.1 % (11.5-14.0); SEGMENTED NEUTROPHILS % (AUTO) 80.1 % (42-78); TOTAL CELLS COUNTED % (AUTO) 100 %; WHITE BLOOD COUNT 8.7 10^3/uL (4.0-10.5)
[2018-10-14 06:11] LABS: ALANINE AMINOTRANSFERASE 29 U/L (9-52); ALBUMIN 3.3 g/dL (3.5-5.0); ALKALINE PHOSPHATASE 137 U/L (38-126); ANION GAP 7 (5-19); ASPARTATE AMINO TRANSFERASE 34 U/L (14-36); BILIRUBIN,DIRECT 0.1 mg/dL (0.0-0.4); BILIRUBIN,TOTAL 0.2 mg/dL (0.2-1.3); BLOOD UREA NITROGEN 3 mg/dL (7-20); CALCIUM 9.1 mg/dL (8.4-10.2); CARBON DIOXIDE 22 mmol/L (22-30); CHLORIDE 107 mmol/L (98-107); GLUCOSE 83 mg/dL (75-110); POTASSIUM 3.5 mmol/L (3.6-5.0); SODIUM 136.2 mmol/L (137-145); TOTAL PROTEIN 6.1 g/dL (6.3-8.2); URIC ACID 5.1 mg/dL (2.5-6.2)
--- NOTE | 2018-10-14 06:19 | Non Stress Test Report ---
Non Stress Test Datetime Report Generated by CPN: 10/14/2018 06:19 DEMOGRAPHIC EGA NST: 36.6 INDICATION Indication for Study: Ordered by Provider Indication for Study (NST) Other: LC URINE RESULTS Urine Protein, NST: Positive Urine Ketones - NST: Negative Urine Glucose - NST: Negative Urine Blood - NST: Negative MONITORING Monitor Explained: Monitor Explained; Test Explained; Patient Verbalized Understanding Time on Monitor: 10/14/2018 04:44 Time off Monitor: 10/14/2018 06:16 NST Duration: 92 NST INTERVENTIONS NST Interventions: PO Hydration Physician Notified NST: Hodges BABY A: [id number] BABY A Movement : Present Contraction Frequency : 5-6.5 FHR Baseline : 145 Accelerations : 15X15 Decelerations : None Variability : Moderate 6-25bpm NST Review: Meets Criteria for Reactive NST NST Review and Verified By : Sri Carrillo RN NST Results: Reactive NST REPORT Report Trigger: Send Report
[2018-10-14 06:29] LABS: URINE PROTEIN 16.9 mg/dL (<12)
[2018-10-14 06:37] LABS: URINE CREATININE 467.5 mg/dL (16-327)
[2018-10-14] MEDS ORDERED: ONDANSETRON HCL INJ/PF 4 MG/2 ML SDV IV ONE (08:45)
[2018-10-14] MEDS ORDERED: RINGERS SOLUTION,LACTATED 1,000 ML IV ONE (09:12)
[2018-10-14] MEDS ORDERED: RINGERS SOLUTION,LACTATED 1,000 ML IV PRN (09:12)
== END 2018-10-14 09:03 | disposition home or self-care (01) ==
LOC: LC 04:06
PROVIDERS: ATTEND Obstetrics & Gynecology
DX: O47.1 False labor at or after 37 completed weeks of gestation (principal); Z3A.37 37 weeks gestation of pregnancy
CPT/HCPCS: 36415; 59025; 80053; 80307; 81005; 82570; 83615; 84156; 84550; 85025

== ENCOUNTER 2018-10-17 05:40 | Outpatient (CLI) | payer MEDICAID ==
[2018-10-17 06:14] LABS: APPEARANCE,URINE CLOUDY; BILIRUBIN,URINE NEGATIVE (NEGATIVE); COLOR,URINE AMBER; GLUCOSE, URINE NEGATIVE (NEGATIVE); KETONES,URINE TRACE mg/dL (NEGATIVE); LEUKOCYTE ESTERASE,URINE SMALL (NEGATIVE); NITRITE,URINE NEGATIVE (NEGATIVE); PROTEIN,URINE 100 mg/dL (NEGATIVE); URINE SPECIFIC GRAVITY 1.028
[2018-10-17 06:45] LABS: URINE AMPHETAMINES SCREEN NEGATIVE; URINE BARBITURATES SCREEN NEGATIVE; URINE BENZODIAZEPINES SCREEN NEGATIVE; URINE COCAINE SCREEN NEGATIVE; URINE MARIJUANA (THC) SCREEN NEGATIVE; URINE METHADONE SCREEN NEGATIVE; URINE PHENCYCLIDINE SCREEN NEGATIVE
--- NOTE | 2018-10-17 07:25 | Non Stress Test Report ---
Non Stress Test Datetime Report Generated by CPN: 10/17/2018 07:25 DEMOGRAPHIC EGA NST: 37.2 INDICATION Indication for Study: Ordered by Provider Indication for Study (NST) Other: lc MONITORING Monitor Explained: Monitor Explained; Test Explained; Patient Verbalized Understanding Time on Monitor: 10/17/2018 06:00 Time off Monitor: 10/17/2018 07:08 NST Duration: 68 NST INTERVENTIONS NST Interventions: PO Hydration; Reposition Patient Physician Notified NST: Dr Aquino BABY A: [id number] BABY A Movement : Present Contraction Frequency : irreg FHR Baseline : 135 Accelerations : 15X15 Decelerations : None Variability : Moderate 6-25bpm NST Review: Meets Criteria for Reactive NST NST Review and Verified By : Bennie Rodriguez RN NST Results: Reactive NST REPORT Report Trigger: Send Report
== END 2018-10-17 07:21 | disposition home or self-care (01) ==
LOC: LC 05:40
PROVIDERS: ATTEND Obstetrics & Gynecology
DX: O47.03 False labor before 37 completed weeks of gestation, third trimester (principal); Z3A.37 37 weeks gestation of pregnancy
CPT/HCPCS: 59025; 80307; 81005

== ENCOUNTER 2018-10-22 12:41 | Inpatient (IN) | payer MEDICAID ==
[2018-10-22] MEDS ORDERED: ACETAMINOPHEN 325 MG TABLET ONE ×3 (13:22→22:56)
[2018-10-22 13:28] LABS: APPEARANCE,URINE SLIGHTLY HAZY; BILIRUBIN,URINE MODERATE (NEGATIVE); COLOR,URINE YELLOW; GLUCOSE, URINE NEGATIVE (NEGATIVE); KETONES,URINE 25 mg/dL (NEGATIVE); URINE SPECIFIC GRAVITY 1.029
[2018-10-22 13:29] LABS: LEUKOCYTE ESTERASE,URINE TRACE (NEGATIVE); NITRITE,URINE NEGATIVE (NEGATIVE); PROTEIN,URINE 100 mg/dL (NEGATIVE)
[2018-10-22] MEDS: ACETAMINOPHEN 325 MG TABLET PO PRN (13:29)
[2018-10-22 13:45] LABS: URINE AMPHETAMINES SCREEN NEGATIVE; URINE BARBITURATES SCREEN NEGATIVE; URINE BENZODIAZEPINES SCREEN NEGATIVE; URINE COCAINE SCREEN NEGATIVE; URINE MARIJUANA (THC) SCREEN NEGATIVE; URINE METHADONE SCREEN NEGATIVE; URINE PHENCYCLIDINE SCREEN NEGATIVE
[2018-10-22 14:05] LABS: UR PRO/CREAT RATIO RESULT 0.1 mg/mg (0.0-0.2); URINE CREATININE 524.9 mg/dL (16-327); URINE PROTEIN 36.2 mg/dL (<12)
[2018-10-22 14:23] LABS: ABSOLUTE BASOPHILS # (AUTO) 0.1 10^3/uL (0.0-0.2); ABSOLUTE LYMPHOCYTES (AUTO) 1.4 10^3/uL (0.5-4.7); ABSOLUTE MONOCYTES (AUTO) 0.5 10^3/uL (0.1-1.4); ABSOLUTE NEUT (AUTO) 5.2 10^3/uL (1.7-8.2); BASOPHILS % (AUTO) 0.8 % (0-2); EOSINOPHILS % (AUTO) 0.7 % (0-6); HEMATOCRIT 28.9 % (36.0-47.0); HEMOGLOBIN 9.5 g/dL (12.0-15.5); LYMPHOCYTES % (AUTO) 19.7 % (13-45); MEAN CORPUSCULAR HEMOGLOBIN 26.7 pg (27.0-33.4); MEAN CORPUSCULAR HGB CONC 32.9 g/dL (32.0-36.0); MEAN CORPUSCULAR VOLUME 81 fl (80-97); MONOCYTES % (AUTO) 6.3 % (3-13); PLATELET COUNT 357 10^3/uL (150-450); RED BLOOD COUNT 3.57 10^6/uL (3.72-5.28); RED CELL DISTRIBUTION WIDTH 16.1 % (11.5-14.0); SEGMENTED NEUTROPHILS % (AUTO) 72.5 % (42-78); TOTAL CELLS COUNTED % (AUTO) 100 %; WHITE BLOOD COUNT 7.2 10^3/uL (4.0-10.5)
[2018-10-22 14:51] LABS: ALANINE AMINOTRANSFERASE 31 U/L (9-52); ALBUMIN 3.2 g/dL (3.5-5.0); ALKALINE PHOSPHATASE 136 U/L (38-126); ANION GAP 6 (5-19); ASPARTATE AMINO TRANSFERASE 34 U/L (14-36); BILIRUBIN,DIRECT 0.2 mg/dL (0.0-0.4); BILIRUBIN,TOTAL 0.2 mg/dL (0.2-1.3); BLOOD UREA NITROGEN 6 mg/dL (7-20); CALCIUM 9.1 mg/dL (8.4-10.2); CARBON DIOXIDE 25 mmol/L (22-30); CHLORIDE 106 mmol/L (98-107); GLUCOSE 82 mg/dL (75-110); POTASSIUM 3.4 mmol/L (3.6-5.0); SODIUM 136.9 mmol/L (137-145); URIC ACID 5.5 mg/dL (2.5-6.2)
[2018-10-22] MEDS ORDERED: RINGERS SOLUTION,LACTATED 1,000 ML IV PRN (15:34)
[2018-10-22] MEDS ORDERED: OXYTOCIN/NORMAL SALINE 20 UNIT/1,000 ML RTUINJ IV PRN (15:34)
[2018-10-22] MEDS ORDERED: RINGERS SOLUTION,LACTATED 300 ML IV ONE (15:34)
--- NOTE | 2018-10-22 16:10 | Admission Physical ---
Datetime Report Generated by CPN: 10/22/2018 16:10 CURRENT ADMISSION Chief Complaint: Signs/Symptoms Gestational HTN Indication for Induction: Gestational HTN Admit Impression : Term, Intrauterine ; No Active Labor Admit Plan: Initiate Labor Induction Protocol ALLERGIES Medication Allergies: Yes Medication Allergies: Penicillins/MO/rash (10/22/2018); amoxicillin/NJ/rash (10/22/2018); latex (10/22/2018); turkey (10/22/2018) Latex: Latex Allergies OBSTETRICAL HISTORY EDC: 11/05/2018 00:00 : 5 Para: 2 Livin Cesareans: 0 Gestational Diabetes: No Rh Sensitization: No Incompetent Cervix: No WIN: No Infertility: No ART Treatment: No Uterine Anomaly: No IUGR: No Hx Previous C/S: No Macrosomia: No Hx Loss/Stillborn: No PIH: No Hx : No Placenta Previa/Abruption: No Depression/PP Depression: No PTL/PROM: No Post Hemorrhage: No Current Procedures: Ultrasound Obstetrical History Comments: G1: 2009 38 weeks 6 lbs 2 oz girl G2: 2013 42 weeks 6 lbs 3 oz male G3: EAB 5 weeks G4: current- late to PNC 30 weeks, anemia SEE RECORDS Alcohol: No Marijuana : No Cocaine: No Other Illicit Drugs: No Cigarettes: Light Tobacco Smoker. 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: No Heart Disease: No Hosp/Surgery: Yes Autoimmune Disorder: No Anesthetic Complications: No Kidney Disease: No Abnormal Pap Smear: No Neuro/Epilepsy: No Psychiatric Disorders: No Other Medical Diseases: No Hepatitis/Liver Disease: No Significant Family History: No Varicosities/Phlebitis: No Trauma/Violence : No Thyroid Dysfunction: No Medical History Comments: anemia, uncontrolled asthma, obesity, INFECTIOUS HISTORY Gonorrhea: No Genital Herpes: No Chlamydia: No Tuberculosis: No Syphilis: No Hepatitis: No HIV/AIDS Exposure: No Rash or Viral Illness: No HPV: No PHYSICAL EXAM General: Normal HEENT: Normal Neurologic: Normal Thyroid: Deferred Heart: Normal Lungs: Normal Breast: Deferred Back: Normal Abdomen: Normal Genitourinary Exam: Normal Extremities: Abnormal DTRs: Normal Pelvic Type: Adequate Physical Exam Comments: pelvis proven to 6#3. BLE edematous and tender. Vital Signs: Reviewed Details Vital Signs: most BPs mild range VAGINAL EXAM Dilatation: 2 Effacement: th Station: -3 Contraction Comments: rare MEMBRANES Pooling: Negative Membranes: Intact FETUS A EGA: 38.0 Monitoring: External US FHR- Baseline: 140 Variability: Moderate 6-25bpm Accelerations: 15X15 Decelerations: None FHR Category: Category I Estimated Weight (gm): 3200 Presentation: Vertex Admit Comment: at 38w. admitted for GHTN after c/w dr apple. also complicated by obesity, late to care at 30w and asthma with rescue inhaler use about twice/month. c/o headache today with partial relief by tylenol. GBS neg. P:cervidil tonight, pitocin in AM, anticipate PLANS FOR LABOR AND DELIVERY Labor and Delivery: Placenta Request Pain Management: Natural Feeding Preference: Both Circumcision: N/A INFORMED CONSENT Assignment: Kishan Apple MD Signature: with User ID: [email or web address] : with User ID: [email or web address]
[2018-10-22] MEDS ORDERED: HYDRALAZINE HCL INJ/PF 20 MG/1 ML SDV ONE (16:18)
[2018-10-22] MEDS ORDERED: HYDRALAZINE HCL INJ/PF 20 MG/1 ML SDV IV ONE (16:45)
[2018-10-22] MEDS ORDERED: DINOPROSTONE 10 MG VAGINAL INSERT.SR ONE (17:44)
[2018-10-22] MEDS ORDERED: DINOPROSTONE 10 MG VAGINAL INSERT.SR PV PRN (18:00)
[2018-10-22] MEDS ORDERED: NIFEDIPINE 10 MG CAPSULE ONE (18:09)
[2018-10-23] MEDS ORDERED: NIFEDIPINE 10 MG CAPSULE ONE ×2 (06:36→17:50)
[2018-10-23] MEDS: NIFEDIPINE 10 MG CAPSULE PO SCH ×2 (06:40→10:33)
[2018-10-23] MEDS: ACETAMINOPHEN 325 MG TABLET PO PRN (06:41)
[2018-10-23] MEDS ORDERED: ACETAMINOPHEN 325 MG TABLET PO ONE (10:03)
[2018-10-23] MEDS ORDERED: ACETAMINOPHEN 325 MG TABLET ONE ×2 (10:04→18:33)
[2018-10-23] MEDS ORDERED: MISOPROSTOL 0.1 MG TABLET ONE ×3 (10:04→20:19)
[2018-10-23] MEDS: MISOPROSTOL 0.1 MG TABLET PO SCH ×2 (10:20→14:17)
[2018-10-23] MEDS ORDERED: OXYTOCIN 10 UNIT/ML VIAL ONE (19:16)
[2018-10-23] MEDS ORDERED: MISOPROSTOL 0.2 MG TABLET ONE (19:16)
[2018-10-23] MEDS ORDERED: LIDOCAINE 1% INJ-PF (10 MG/ML) 30 ML SDV ONE (19:16)
[2018-10-23] MEDS ORDERED: OXYTOCIN/NORMAL SALINE 20 UNIT/1,000 ML RTUINJ ONE ×2 (19:16→21:00)
[2018-10-23] MEDS ORDERED: MISOPROSTOL 0.2 MG TABLET PO ONE (20:20)
[2018-10-23] MEDS ORDERED: MISOPROSTOL 0.2 MG TABLET PV ONE (20:21)
[2018-10-23] MEDS ORDERED: NALBUPHINE HCL INJ 10 MG/1 ML AMPULE ONE (23:36)
[2018-10-23] MEDS ORDERED: PROMETHAZINE HCL INJ 25 MG/1 ML VIAL ONE (23:36)
[2018-10-23] MEDS ORDERED: NALBUPHINE HCL INJ 10 MG/1 ML AMPULE INJ ONE (23:59)
[2018-10-23] MEDS ORDERED: PROMETHAZINE HCL INJ 25 MG/1 ML VIAL IV ONE (23:59)
[2018-10-24] MEDS ORDERED: ZOLPIDEM TARTRATE 5 MG TABLET PO PRN (00:30)
[2018-10-24] MEDS ORDERED: GLYCERIN/WITCH HAZEL LEAF 1 EACH MED..WIPE TP PRN (00:30)
[2018-10-24] MEDS ORDERED: PROMETHAZINE HCL INJ 25 MG/1 ML VIAL IV PRN (00:30)
[2018-10-24] MEDS ORDERED: MEASLES,MUMPS&RUBELLA VACC/PF 0.5 ML VIAL SUBCUT PRN (00:30)
[2018-10-24] MEDS ORDERED: DIPHENHYDRAMINE HCL 25 MG CAPSULE PO PRN (00:30)
[2018-10-24] MEDS ORDERED: PROMETHAZINE HCL 25 MG SUPP.RECT PR PRN (00:30)
[2018-10-24] MEDS ORDERED: BENZOCAINE/MENTHOL AEROSOL SPRAY 56 ML TOP PRN (00:30)
[2018-10-24] MEDS ORDERED: NA PHOS,M-B/NA PHOS,DI-BA (ADULT) 133 ML ENEMA PR PRN (00:30)
[2018-10-24] MEDS ORDERED: OXYTOCIN/NORMAL SALINE 20 UNIT/1,000 ML RTUINJ IV PRN (00:30)
[2018-10-24] MEDS ORDERED: PSEUDOEPHEDRINE HCL 30 MG TABLET PO PRN (00:30)
[2018-10-24] MEDS ORDERED: ACETAMINOPHEN 650 MG SUPP.RECT PR PRN (00:30)
[2018-10-24] MEDS ORDERED: DIBUCAINE 1% OINTMENT 56 GM TP PRN (00:30)
[2018-10-24] MEDS ORDERED: MAGNESIUM HYDROXIDE SUSP 30 ML UDCUP PO PRN (00:30)
[2018-10-24] MEDS ORDERED: DIPH/PERTUSS(ACELL)/TETANUS VAC/PF 0.5 ML SYR (>=10YO) IM PRN (00:30)
[2018-10-24] MEDS ORDERED: ACETAMINOPHEN WITH CODEINE #3 TABLET PO PRN ×2 (00:30)
[2018-10-24] MEDS ORDERED: PROMETHAZINE HCL 25 MG TABLET PO PRN (00:30)
[2018-10-24] MEDS ORDERED: NIFEDIPINE 10 MG CAPSULE ONE ×2 (02:09→09:10)
[2018-10-24] MEDS: NIFEDIPINE 10 MG CAPSULE PO SCH ×2 (02:11→09:17)
[2018-10-24] MEDS: IBUPROFEN 800 MG TABLET PO SCH ×3 (05:40→22:17)
[2018-10-24] MEDS: PRENATAL VITAMIN W DHA CAPSULE PO SCH (09:17)
[2018-10-24] MEDS: SENNOSIDES/DOCUSATE 8.6-50 MG 1 EACH TABLET PO SCH (09:17)
[2018-10-24] MEDS: FERROUS SULFATE 325 MG TABLET PO SCH ×2 (09:17→17:39)
[2018-10-24] MEDS: DOCUSATE SODIUM 100 MG CAPSULE PO SCH ×2 (09:17→17:39)
[2018-10-24] MEDS: FAMOTIDINE 20 MG TABLET PO SCH ×2 (09:17→22:17)
[2018-10-24] MEDS: NIFEDIPINE 30 MG TAB.ER.24 PO SCH (15:21)
[2018-10-24] MEDS: FUROSEMIDE 20 MG TABLET PO SCH (15:21)
[2018-10-25] MEDS: IBUPROFEN 800 MG TABLET PO SCH ×3 (05:47→21:28)
[2018-10-25 06:47] LABS: HEMATOCRIT 25.4 % (36.0-47.0); HEMOGLOBIN 8.4 g/dL (12.0-15.5); MEAN CORPUSCULAR HEMOGLOBIN 26.8 pg (27.0-33.4); MEAN CORPUSCULAR VOLUME 81 fl (80-97); PLATELET COUNT 307 10^3/uL (150-450); RED BLOOD COUNT 3.14 10^6/uL (3.72-5.28); RED CELL DISTRIBUTION WIDTH 16.3 % (11.5-14.0); WHITE BLOOD COUNT 8.4 10^3/uL (4.0-10.5)
[2018-10-25] MEDS: NIFEDIPINE 30 MG TAB.ER.24 PO SCH ×2 (09:58→21:28)
[2018-10-25] MEDS: FUROSEMIDE 20 MG TABLET PO SCH (09:59)
[2018-10-25] MEDS: SENNOSIDES/DOCUSATE 8.6-50 MG 1 EACH TABLET PO SCH (09:59)
[2018-10-25] MEDS: DOCUSATE SODIUM 100 MG CAPSULE PO SCH ×2 (09:59→17:35)
[2018-10-25] MEDS: PRENATAL VITAMIN W DHA CAPSULE PO SCH (09:59)
[2018-10-25] MEDS: FERROUS SULFATE 325 MG TABLET PO SCH ×2 (10:00→17:35)
[2018-10-25] MEDS: FAMOTIDINE 20 MG TABLET PO SCH ×2 (10:00→21:28)
--- NOTE | 2018-10-25 10:09 | PDOC PROGRESS REPORT ---
Subjective-OB Progress Note for:: 10/25/18 Subjective: Denies visual changes, LUJAN, RUOQ pain Physical Exam (OB) Vital Signs: Temp Pulse Resp BP Pulse Ox 98.3 F 86 17 151/93 H 100 10/25/18 08:10 10/25/18 08:10 10/25/18 08:10 10/25/18 08:10 10/25/18 08:10 - PIH/Pre-Eclampsia DTR's: 1 + Clonus: Negative Headache: Absent Epigastric Pain: No Visual Changes: No - Lochia Lochia Amount: Small 10-25 ml Lochia Color: Rubra/Red - Abdomen Description: Soft Hernia Present: No Bowel Sounds: Normoactive Flatus Presence: Present Stool: Yes Fundal Description: Firm, Midline Fundal Height: u/u - u/2 Objective-Diagnostic Laboratory: 10/25/18 06:29 10/22/18 14:08 10/25/18 06:29 WBC 8.4 RBC 3.14 L Hgb 8.4 L Hct 25.4 L MCV 81 MCH 26.8 L MCHC 33.0 RDW 16.3 H Plt Count 307 10/22/18 13:50 Clean Catch Midstream Urine Culture - Final Mixed Urogenital Kaylynn
[2018-10-26] MEDS: IBUPROFEN 800 MG TABLET PO SCH ×2 (05:15→13:09)
--- NOTE | 2018-10-26 09:19 | PDOC DISCHARGE SUMMARY ---
Final Diagnosis Discharge Date: 10/26/18 - Final Diagnosis (1) Obesity affecting Is this a current diagnosis for this admission?: Yes (2) Is this a current diagnosis for this admission?: Yes (3) -induced hypertension Is this a current diagnosis for this admission?: Yes Discharge Data - Discharge Medication Prescriptions: Ibuprofen [Motrin 800 mg Tablet] 800 mg PO Q8 #90 tablet Home Medications: Albuterol Sulfate [Albuterol Sulfate Hfa] 2 puff IN PRN PRN 10/14/18 Budesonide/Formoterol Fumarate [Symbicort HFA 160-4.5 mcg Inhaler 6 gm] 2 puff IH DAILY 10/14/18 Ferrous Sulfate [Iron] 325 mg PO DAILY 10/14/18 Vit/Dha [ Multi + Dha Capsule] 1 tab PO DAILY 10/14/18 Ibuprofen [Motrin 800 mg Tablet] 800 mg PO Q8 #90 tablet 10/26/18 Reason(s) for Admission: Induction of Labor Intrapartum Procedure(s): Spontaneous Vaginal Delivery - Diagnosis Test Laboratory: Temp Pulse Resp BP Pulse Ox 98.5 F 78 16 135/82 H 100 10/26/18 08:24 10/26/18 08:24 10/26/18 08:24 10/26/18 08:24 10/26/18 08:24 10/22/18 10/22/18 10/25/18 13:08 14:08 06:29 RBC 3.57 L 3.14 L Hgb 9.5 L 8.4 L Hct 28.9 L 25.4 L Urine Opiates Screen NEGATIVE - Discharge information/Instructions Discharge Activity: Activity As Tolerated, Balance Activity w/Rest, No Lifting Over 10 Pounds, Pelvic Rest, No tub bath Discharge Diet: Regular Disposition: HOME, SELF-CARE Follow up with: [facility] in: [place]
[2018-10-26] MEDS: FERROUS SULFATE 325 MG TABLET PO SCH (09:32)
[2018-10-26] MEDS: NIFEDIPINE 30 MG TAB.ER.24 PO SCH (09:32)
[2018-10-26] MEDS: PRENATAL VITAMIN W DHA CAPSULE PO SCH (09:32)
[2018-10-26] MEDS: FUROSEMIDE 20 MG TABLET PO SCH (09:32)
[2018-10-26] MEDS: DOCUSATE SODIUM 100 MG CAPSULE PO SCH (09:32)
[2018-10-26] MEDS: FAMOTIDINE 20 MG TABLET PO SCH (09:32)
[2018-10-26] MEDS: SENNOSIDES/DOCUSATE 8.6-50 MG 1 EACH TABLET PO SCH (09:32)
[2018-10-26 09:49] VITALS: BP 151/93
--- NOTE | 2018-10-30 10:16 | Delivery Summary ---
Del Sum A-C Datetime Report Generated by CPN: 10/30/2018 10:15 DELIVERY PERSONNEL DELIVERY PERSONNEL: [id number] Delivery Doctor:: Dorothea Langston MD Labor and Delivery Nurse:: Sara Sutton RNfood preservation scientist Nurse:: Oneyda Lala RNC Nursery Nurse:: Teresa Stratton RN Nursery Nurse:: Irasema Wolf RN MSN MATERNAL INFORMATION Delivery Anesthesia: None Medications After Delivery: Pitocin Bolus-Please Comment; Pitocin Drip 20 Units/1000ml NSS Meds After Delivery Comment: Pitocin 20 u in 1 L of NS Estimated Blood Loss (ml): 200 Maternal Complications: None; Precipitous Labor (<3hrs) LABOR SUMMARY EDC: 11/05/2018 00:00 No. Babies in Womb: 1 Attempted: No Labor Anesthesia: IV Sedation LABOR INFORMATION Reason for Induction: Chronic Secondary Hypertension (Specify Cause); Gestational Hypertension Onset of Labor: 10/23/2018 22:00 Complete Dilatation: 10/24/2018 00:20 Cervical Ripening Agents: Cervidil; Cytotec @ Cervical Ripening Agents: Cytotec @ 50 mcg PO Cervical Ripening Agents: cervidil out Oxytocin: Induction Group B Beta Strep: negative Antibiotics # of Doses: 0 Antibiotics Time of Last Dose: 0 Name of Antibiotic Given: 0 Steroids Given: None Reason Steroids Not Administered: Not Applicable MEMBRANES Membranes Rupture Method: Spontaneous Membranes Rupture Method: Spontaneous Rupture of Membranes: 10/23/2018 22:48 Length of Rupture (hr): 1.57 Amniotic Fluid Color: Clear Amniotic Fluid Color: Clear Amniotic Fluid Amount: Small Amniotic Fluid Amount: Small Amniotic Fluid Odor: Normal Amniotic Fluid Odor: Normal STAGES OF LABOR Stage 1 hr: 2 Stage 1 min: 20 Stage 2 hr: 0 Stage 2 min: 2 Stage 3 hr: 0 Stage 3 min: 3 Total Time in Labor hr: 2 Total Time in Labor min: 25 VAGINAL DELIVERY Episiotomy: None Laceration #1: None Laceration Extension #1: N/A Laceration Repair: Not Applicable Sponge Count Correct: N/A Sharps Count Correct: N/A CSECTION DELIVERY Primary Indication: N/A Secondary Indication: N/A CSection Incidence: N/A Labor: N/A Elective: N/A CSection Incision: N/A BABY A INFORMATION Delivery Date/Time: 10/24/2018 00:22 Method of Delivery: Vaginal Born in Route : No : N/A Forceps: N/A Vacuum Extraction: N/A Shoulder Dystocia : No PRESENTATION/POSITION BABY A Presentation: Cephalic Cephalic Presentation: Vertex Vertex Position: Left Occipital Anterior Breech Presentation: N/A PLACENTA INFORMATION BABY A Placenta Delivery Time : 10/24/2018 00:25 Placenta Method of Delivery: Spontaneous Placenta Status: Delivered SCORES BABY A Heart Rate 1 min: >100 bpm Resp Effort 1 min: Good Cry Reflex Irritability 1 min: Cough or Sneeze or Pulls Away Muscle Tone 1 min: Active Motion Color 1 min: Blue/Pale Resuscitation Effort 1 min: Tactile Stimulation SCORE 1 MIN: 8 Heart Rate 5 min: >100 bpm Resp Effort 5 min: Good Cry Reflex Irritability 5 min: Cough or Sneeze or Pulls Away Muscle Tone 5 min: Active Motion Color 5 min: Body [place], Extremities Blue Resuscitation Effort 5 min: Tactile Stimulation SCORE 5 MIN: 9 INFANT INFORMATION BABY A Gestational Age at Delivery: 38.2 Gestational Status: Early Term- 37- 38.6 Weeks Outcome : Liveborn Infant Condition : Stable Infant Sex: Female IDENTIFICATION BABY A Verification Date/Time: 10/24/2018 00:59 ID Band Number: [id number] Mother's Name Verified: Yes RN Verifying Infant: Karolyn, RN Additional Verifying Personnel: T. Estefaniailin, RN WEIGHT/LENGTH BABY A Infant Birthweight (gm): 2960 Infant Weight (lb): 6 Infant Weight (oz): 8 Infant Length (in): 19.00 Infant Length (cm): 48.26 CORD INFORMATION BABY A No. Cord Vessels: 3 Nuchal Cord : N/A Cord Blood Taken: Yes-For Storage (Mom's Blood type +) Suction: None ASSESSMENT BABY A Skin to Skin: No BABY B INFORMATION : N/A SIGNATURES Signature: with User ID: [email or web address] : I was personally available for consultation and serving as supervising physician for the MLP.
== END 2018-10-26 14:00 | disposition home or self-care (01) | DRG 807 ==
LOC: LC 12:41 → LR 15:05 → 2S 10-24 02:28 → UNDODISIN 10-25 20:06
PROVIDERS: ADMIT Obstetrics & Gynecology; ATTEND Obstetrics & Gynecology
PROC: 3E0P7VZ Introduction of Hormone into Female Reproductive, Via Natural or Artificial Opening (ICD-10-PCS; 2018-10-22)
PROC: 10E0XZZ Delivery of Products of Conception, External Approach (ICD-10-PCS; principal; 2018-10-24)
DX: O13.4 Gestational [pregnancy-induced] hypertension without significant proteinuria, complicating childbirth (principal); Z37.0 Single live birth; O62.3 Precipitate labor; O99.02 Anemia complicating childbirth; D64.9 Anemia, unspecified; O99.334 Smoking (tobacco) complicating childbirth; F17.210 Nicotine dependence, cigarettes, uncomplicated; J45.909 Unspecified asthma, uncomplicated; O99.52 Diseases of the respiratory system complicating childbirth; O99.214 Obesity complicating childbirth; E66.9 Obesity, unspecified; Z3A.38 38 weeks gestation of pregnancy; Z88.0 Allergy status to penicillin; Z91.040 Latex allergy status; Z79.51 Long term (current) use of inhaled steroids
CPT/HCPCS: 36415; 80053; 80307; 81005; 82570; 83615; 84156; 84550; 85025; 85027; 86592; 86850; 86900; 86901; 87086; J0360; J2300; J2550; J2590; J3490

== ENCOUNTER → 2019-01-09 | Outpatient (CLI) | payer MEDICAID ==
[2019-01-09 19:20] LABS: ABSOLUTE BASOPHILS # (AUTO) 0.1 10^3/uL (0.0-0.2); ABSOLUTE EOSINOPHILS # (AUTO) 0.1 10^3/uL (0.0-0.6); ABSOLUTE LYMPHOCYTES (AUTO) 1.9 10^3/uL (0.5-4.7); ABSOLUTE MONOCYTES (AUTO) 0.4 10^3/uL (0.1-1.4); ABSOLUTE NEUT (AUTO) 3.5 10^3/uL (1.7-8.2); BASOPHILS % (AUTO) 0.9 % (0-2); EOSINOPHILS % (AUTO) 1.7 % (0-6); HEMATOCRIT 34.9 % (36.0-47.0); HEMOGLOBIN 11.2 g/dL (12.0-15.5); LYMPHOCYTES % (AUTO) 32.1 % (13-45); MEAN CORPUSCULAR HEMOGLOBIN 26.4 pg (27.0-33.4); MEAN CORPUSCULAR HGB CONC 32.1 g/dL (32.0-36.0); MEAN CORPUSCULAR VOLUME 82 fl (80-97); MONOCYTES % (AUTO) 6.6 % (3-13); PLATELET COUNT 401 10^3/uL (150-450); RED BLOOD COUNT 4.25 10^6/uL (3.72-5.28); RED CELL DISTRIBUTION WIDTH 17.2 % (11.5-14.0); SEGMENTED NEUTROPHILS % (AUTO) 58.7 % (42-78); TOTAL CELLS COUNTED % (AUTO) 100 %
== END ==
LOC: LAB 18:54
PROVIDERS: ATTEND Nurse Practitioner Acute Care
DX: R50.9 Fever, unspecified (principal)
CPT/HCPCS: 36415; 85025